=== PATIENT | male | born 1965 | race Caucasian/White ===

== ENCOUNTER → 2021-02-01 | Outpatient (CLI) | payer OTHER ==
[~2021-02-01] MED LIST: CIPRO500 MG PO; LISINOPRIL5 MG PO; METHOTREXATE 22.5 MG PO; PREDNISONE 10 M10 MG PO
== END ==
LOC: M.CT 09:00
PROVIDERS: ATTEND Family Medicine
DX: E78.5 Hyperlipidemia, unspecified (principal); I25.10 Atherosclerotic heart disease of native coronary artery without angina pectoris

== ENCOUNTER 2021-09-19 16:08 | Emergency (ER) | payer OTHER ==
[~2021-09-19] VITALS: Ht 167.6 cm; Wt 93.0 kg
[~2021-09-19 16:08] MED LIST changes: +PHENERGAN 25 MG25 M1 PO
[2021-09-19 16:45] LABS: INFLUENZA A ANTIGEN Negative (Negative); INFLUENZA B ANTIGEN Negative (Negative)
[2021-09-19 17:12] LABS: HEMATOCRIT 45.7 % (42.0-52.0); HEMOGLOBIN 16.3 gm/dL (14.0-18.0); MCH 32.1 pg (26.0-34.0); MCHC 35.7 g/dL (28.0-37.0); MCV 89.8 fL (80.0-100.0); MPV 8.9 fl. (7.2-11.1); NUCLEATED RBCS 0 /100WBC; PLATELET COUNT* 168 thou/uL (150-400); RBC 5.09 mil/uL (4.50-6.00); RDW-CV 12.9 % (10.5-14.5)
[2021-09-19 17:24] LABS: CALCIUM 8.6 mg/dL (8.5-10.1); CREATININE 1.1 mg/dL (0.6-1.3); POTASSIUM 4.2 mmol/L (3.5-5.1)
[2021-09-19 17:28] LABS: ALBUMIN 3.8 g/dL (3.4-5.0); TOTAL BILIRUBIN 1.6 mg/dL (<0.1-1.0); TOTAL PROTEIN 7.5 g/dL (6.4-8.2)
[2021-09-19 18:06] LABS: ABSOLUTE LYMPHOCYTES 0.4 thou/uL (0.8-5.3); ABSOLUTE MONOCYTES 0.5 thou/uL (0.0-1.2); ABSOLUTE NEUTROPHILS 8.2 thou/uL (1.6-8.1); PLATELET ESTIMATE ADEQUATE
[2021-09-19 18:07] LABS: MACROCYTES Occasional
[2021-09-19 19:53] VITALS: BP 124/79
== END 2021-09-19 19:53 | disposition home or self-care (01) ==
LOC: M.ERS 16:08
PROVIDERS: Physician Assistant
DX: R11.2 Nausea with vomiting, unspecified (principal); Z20.822 Contact with and (suspected) exposure to COVID-19; I10 Essential (primary) hypertension; E78.00 Pure hypercholesterolemia, unspecified; Z79.899 Other long term (current) drug therapy; Z88.0 Allergy status to penicillin; Z88.5 Allergy status to narcotic agent